=== PATIENT | female | born 1965 | race Native Hawaiian/Other Pacific Islander ===

== ENCOUNTER → 2021-06-18 | Outpatient (CLI) | payer OTHER | LOC: LAB 07:40 → LAB SHORT 07:40 | DX: L30.8 Other specified dermatitis (principal) | CPT/HCPCS: 88312 ==

== ENCOUNTER → 2021-06-18 | Outpatient (CLI) | payer OTHER | END | disposition home or self-care (01) | LOC: LAB SHORT 08:50 | DX: R21 Rash and other nonspecific skin eruption (principal); D48.5 Neoplasm of uncertain behavior of skin; L28.1 Prurigo nodularis; L29.8 Other pruritus; L81.4 Other melanin hyperpigmentation; L08.9 Local infection of the skin and subcutaneous tissue, unspecified; R06.02 Shortness of breath; R05 Cough; R53.83 Other fatigue; Z87.891 Personal history of nicotine dependence | CPT/HCPCS: 87070; 87071; 87077; 87147; 87186; 87205 ==